=== PATIENT | female | born 1980 | race African-American/Black ===

== ENCOUNTER 2023-04-13 20:27 | Emergency (ER) | payer SELFPAY ==
[2023-04-13] MEDS ORDERED: Cyclobenzaprine 10 MG TAB ONE (21:11)
[2023-04-13] MEDS ORDERED: Ketorolac Tromethamine 30 MG/ML VIAL ONE (21:11)
== END 2023-04-13 23:11 | disposition home or self-care (01) ==
LOC: CSHERS 20:27
DX: T14.8XXA Other injury of unspecified body region, initial encounter (principal); M54.2 Cervicalgia; M54.9 Dorsalgia, unspecified; E03.9 Hypothyroidism, unspecified; X58.XXXA Exposure to other specified factors, initial encounter
CPT/HCPCS: 71046; 93005; 96372; J1885